=== PATIENT | female | born 1985 | race Two or more races ===

== ENCOUNTER 2018-03-20 05:59 | Inpatient (IN) | payer OTHER ==
[~2018-03-20] VITALS: Ht 162.6 cm; Wt 67.8 kg
--- NOTE | 2018-03-20 08:37 | NUR ---
MS/RN New admission New admission from [facility] with diagnose of cholelithiasis. Patient fully admitted, awaiting orders.
[2018-03-20] MEDS ORDERED: ACET1TAB23 PO (08:53)
[2018-03-20] MEDS ORDERED: CYAN10009 PO (08:53)
[2018-03-20] MEDS ORDERED: TIZA4TAB4 PO (08:53)
[2018-03-20] MEDS ORDERED: ALBU18HF2 IH (08:53)
[2018-03-20] MEDS ORDERED: CALC-7 PO (08:53)
[2018-03-20 09:15] VITALS: BP 112/68
[2018-03-20] MEDS ORDERED: IV NS 0.9% 1,000 ML IV PRN (09:19)
[2018-03-20] MEDS ORDERED: ZOLPIDEM TARTRATE 5 MG TABLET PO PRN (09:30)
[2018-03-20] MEDS ORDERED: HYDROMORPHONE INJ 0.5 MG/0.5 ML SYRINGE IV PRN (09:30)
[2018-03-20] MEDS ORDERED: PANTOPRAZOLE 40 MG VIAL IV SCH (09:30)
[2018-03-20] MEDS ORDERED: ACETAMINOPHEN 325 MG TABLET PO PRN ×2 (09:30→19:55)
[2018-03-20] MEDS ORDERED: ONDANSETRON HCL/PF 4 MG/2 ML VIAL IVP PRN (09:30)
[2018-03-20] MEDS ORDERED: Z GUARD REMEDY 2 OZ OINT TP PRN (09:30)
[2018-03-20 10:23] LABS: BASOPHILS % (AUTO) 0.1 % (0.0-2.0); EOSINOPHILS % (AUTO) 3.3 % (0.0-6.0); HEMATOCRIT 37 % (33-45); HEMOGLOBIN 12.7 g/dL (11.5-14.8); LYMPHOCYTES # (AUTO) 1.6 /CMM (0.8-4.8); LYMPHOCYTES % (AUTO) 33.6 % (20.0-44.0); MEAN CORPUSCULAR HGB CONC 34 g/dl (31.0-36.0); MEAN CORPUSCULAR VOLUME 86 fL (82-100); MONOCYTES # (AUTO) 0.4 /CMM (0.1-1.30); MONOCYTES % (AUTO) 8.5 % (2.0-12.0); NEUTROPHILS # (AUTO) 2.7 /CMM (1.8-8.9); NEUTROPHILS % (AUTO) 54.5 % (43.0-81.0); PLATELET COUNT (AUTO) 202 /CMM (150-450); RED BLOOD CELL COUNT(AUTO) 4.37 MIL/uL (4.0-5.2); WHITE BLOOD COUNT (AUTO) 4.9 K/uL (4.3-11.0)
[2018-03-20 10:34] LABS: ALBUMIN 3.7 g/dL (3.4-5.0); BILIRUBIN,TOTAL 0.5 mg/dL (0.2-1.0); CALCIUM, SERUM 8.5 mg/dL (8.5-10.1); CREATININE 0.8 mg/dL (0.6-1.3); TOTAL PROTEIN, SERUM 6.9 g/dL (6.4-8.2)
[2018-03-20] MEDS ORDERED: MAG HYDROX/AL HYDROX/SIMETH 30 ML UDC PO PRN (11:00)
[2018-03-20 11:20] VITALS: BP 112/68
[2018-03-20] MEDS ORDERED: PIPERACILLIN /TAZOBACTAM 3.375 G in IV D5W 50 ML IV ONE (12:00)
--- NOTE | 2018-03-20 12:30 | NUR ---
MS/RN S/B Dr Reyes Seen by Dr Reyes - as patient had abdominal ultrasound completed at [facility] and unable to view images here, HIDA scan to be ordered. Patient to remain NPO.
--- NOTE | 2018-03-20 13:10 | NUR ---
MS/RN Consent Consent forms signed for HIDA scan, test resulted as negative. Per James from nuclear medicine, isotope ordered, patient will be picked up around 2p.
[2018-03-20] MEDS ORDERED: ROCURONIUM BROMIDE 50 MG/5 ML ONE (15:09)
[2018-03-20] MEDS ORDERED: FENTANYL PF 100MCG/2ML AMPUL ONE ×2 (15:31→18:27)
[2018-03-20] MEDS ORDERED: MIDAZOLAM HCL 2 MG/2ML VIAL ONE (15:32)
[2018-03-20] MEDS ORDERED: BUPIVACAINE 0.5 % PF 150 MG/30 ML VIAL ONE (15:34)
[2018-03-20] MEDS ORDERED: LIDOCAINE 1%-EPI 1:100,000 20 ML VIAL ONE (15:34)
--- NOTE | 2018-03-20 15:48 | NUR ---
MS/school supervisor Notified by surgery that patient would be going straight from nuclear medicine to surgery for laparoscopic cholecystectomy.
[2018-03-20] MEDS ORDERED: LIDOCAINE HCL/PF 1% 30 ML SDV ONE (16:11)
[2018-03-20] MEDS ORDERED: ONDANSETRON HCL/PF 4 MG/2 ML VIAL ONE (18:27)
[2018-03-20 18:37] LABS: APPEARANCE,URINE CLEAR (CLEAR); BILIRUBIN,URINE NEGATIVE (NEGATIVE); BLOOD, URINE NEGATIVE Ery/uL (NEGATIVE); COLOR,URINE YELLOW (YELLOW); KETONES,URINE NEGATIVE (NEGATIVE); LEUKOCYTE ESTERASE ,URINE NEGATIVE (NEGATIVE); NITRITE, URINE NEGATIVE (NEGATIVE); PH,URINE 8.5 (5.0-8.0); PROTEIN,URINE TRACE mg/dl (NEGATIVE); UGLUCOSE NEGATIVE (NEGATIVE); UROBILINOGEN,URINE 0.2 EU/dL (0.2)
--- NOTE | 2018-03-20 18:41 | NUR ---
MS/RN End note Patient remains in operating room at this time.
[2018-03-20 18:51] LABS: BACTERIA,URINE Few /HPF (None Seen); HYALINE CASTS, URINE Rare /LPF (None Seen); MUCUS,URINE Few /LPF (None Seen); RBC,URINE NONE SEEN /HPF (0-2); SQUAMOUS EPITHELIAL CELL,UR Many /HPF (None Seen); WBC,URINE NONE SEEN /HPF (0-3)
[2018-03-20] MEDS ORDERED: METOCLOPRAMIDE HCL 10 MG/2 ML VIAL ONE (18:51)
[2018-03-20 19:00] VITALS: BP 143/89
--- NOTE | 2018-03-20 19:50 | NUR ---
RN OPENING NOTES Pt JUST RETURNED FROM OR, S/P BEE SHRESTHAE WITH DR. FLETCHER. RECEIVED REPORT FROM [employer]CH[employer]. Pt IS RESTING IN BED WITH EYES CLOSED, BUT IS RESPONSIVE AND VERBAL WHEN CALLED BY NAME. NO S/S OF ACUTE DISTRESS OR SOB NOTED. Pt IS A/OX4, ABLE TO MAKE NEEDS KNOWN. IV L HAND #20G. SAFETY MEASURES IN PLACE. BED LOW, LOCKED, HOB ELEVATED, SIDE RAILS UP, CALL LIGHT AND BED SIDE TABLE WITHIN REACH. DAYSHIFT RN HAS FAXED POST-OP ORDERS FROM DR FLETCHER. WILL CONTINUE TO MONITOR Pt's CONDITION AND SAFETY THROUGHOUT THE NIGHT.
[2018-03-20 20:00] VITALS: BP 143/89
[2018-03-20] MEDS ORDERED: DOCUSATE SODIUM 100 MG CAPSULE PO PRN (20:00)
[2018-03-20] MEDS ORDERED: IV LR 1000 ML 1,000 ML IV PRN (20:00)
[2018-03-20] MEDS ORDERED: PIPERACILLIN /TAZOBACTAM 3.375 G in IV D5W 100 ML IV SCH (20:00)
--- NOTE | 2018-03-20 20:10 | NUR ---
RN NOTES RECEIVED CALL FROM PHARMACY ASKING TO CONTACT DR FLETCHER IF PREVIOUS ORDERS FROM BEFORE SURGERY ARE TO BE CONTINUED OR NOT POST-OP. IN POST-OP ORDERS IT WAS NOT SPECIFIED IF PREVIOUS MEDS, SUCH ZOSYN AND PROTONIX, WERE TO BE RESUMED. WILL TRY TO GET A HOLD OF DR FLETCHER TO CLARIFY.
[2018-03-20] MEDS: HYDROMORPHONE INJ 2 MG/ML DISP.SYRIN IV PRN ×2 (20:11→22:23)
--- NOTE | 2018-03-20 20:24 | NUR ---
DR FLETCHER'S OFFICE #: [phone]
--- NOTE | 2018-03-20 20:25 | NUR ---
RN NOTES SPOKE WITH TOREY FROM DR FLETCHER'marilyn AFTER OFFICE HOURS. GAVE ME DR FLETCHER's DIRECT NUMBER: [phone]
--- NOTE | 2018-03-20 20:27 | NUR ---
RN NOTES CONTACTED DR. FLETCHER, INFORMED HIM OF THE SITUATION THAT PER PHARMACY THEY NEED A CLARIFICATION ORDER OF WHETHER OR NOT TO RESUME ALL MEDS. WAITING FOR HIS RESPONSE BACK.
--- NOTE | 2018-03-20 20:57 | NUR ---
RN NOTES PER DR FLETCHER's PHONE ORDER: DISCONTINUE ANTIBIOTICS. CONTINUE ALL OTHER MEDS, INCLUDING PROTONIX. AND TO ADD ON TO THE POST-OP ORDERS.
[2018-03-20] MEDS: PANTOPRAZOLE 40 MG VIAL IV SCH (22:05)
--- NOTE | 2018-03-20 22:06 | NUR ---
ADMINISTERED PROTONIX 40MG LATE DUE TO Pt BEING IN SURGERY AT 1700 WHEN MED WAS SCHEDULED TO BE DUE. PER PHARMACY OK TO GIVE LATE LONG DR FLETCHER SAID OK TO CONTINUE MEDS. PER DR JUSTINE WARD TO CONTINUE PROTONIX.
[2018-03-21] MEDS: HYDROCODONE/APAP 5/325MG 1 EACH TABLET PO PRN ×3 (00:07→21:15)
[2018-03-21] MEDS: HYDROMORPHONE INJ 2 MG/ML DISP.SYRIN IV PRN (05:53)
[2018-03-21 06:49] LABS: BASOPHILS % (AUTO) 0.1 % (0.0-2.0); HEMATOCRIT 36 % (33-45); HEMOGLOBIN 12.2 g/dL (11.5-14.8); LYMPHOCYTES # (AUTO) 1.1 /CMM (0.8-4.8); LYMPHOCYTES % (AUTO) 14.2 % (20.0-44.0); MEAN CORPUSCULAR HGB CONC 34 g/dl (31.0-36.0); MEAN CORPUSCULAR VOLUME 85 fL (82-100); MONOCYTES # (AUTO) 0.5 /CMM (0.1-1.30); MONOCYTES % (AUTO) 6.6 % (2.0-12.0); NEUTROPHILS # (AUTO) 6.1 /CMM (1.8-8.9); NEUTROPHILS % (AUTO) 79.1 % (43.0-81.0); PLATELET COUNT (AUTO) 198 /CMM (150-450); RED BLOOD CELL COUNT(AUTO) 4.22 MIL/uL (4.0-5.2); WHITE BLOOD COUNT (AUTO) 7.7 K/uL (4.3-11.0)
[2018-03-21 06:50] LABS: CALCIUM, SERUM 8.2 mg/dL (8.5-10.1); CREATININE 0.6 mg/dL (0.6-1.3)
--- NOTE | 2018-03-21 06:55 | NUR ---
RN CLOSING NOTES NO SIGNIFICANT CHANGES IN Pt's CONDITION. Pt REMAINS STABLE PER BASELINE. NO S/S OF ACUTE DISTRESS OR SOB NOTED DURING THE NIGHT. ALL NEEDS MET AND ATTENDED TO. SAFETY MEASURES IN PLACE. WILL ENDORSE TO DAYSHIFT RN FOR Pt's MAUDE.
--- NOTE | 2018-03-21 07:36 | NUR ---
MS/RN Patient received Patient received from cook night, sleeping as pain medication just administered by previous nurse. IV fluids infusing at 90ml/hr, no signs of infiltration seen. Call light within reach, will continue to monitor and ensure safety.
[2018-03-21 08:00] VITALS: BP_SYST 114; BP_DIAS 1; BP_DIAS 71
[2018-03-21] MEDS: PANTOPRAZOLE 40 MG VIAL IV SCH ×2 (08:22→16:56)
--- NOTE | 2018-03-21 10:00 | NUR ---
MS/RN S/B Dr Obando Seen by Dr Obando - for possible discharge later today if able to tolerate diet. IV fluids to be discontinued at that time.
--- NOTE | 2018-03-21 12:30 | NUR ---
MS/RN Advance diet Dr Helm called regarding diet, order given to advance as tolerated.
[2018-03-21 16:00] VITALS: BP_SYST 120; BP_SYST 143; BP_DIAS 65; BP_DIAS 76
--- NOTE | 2018-03-21 16:39 | NUR ---
Patient lives at home with family. She is ambulatory and independent with adl's. Has good family support. Spouse will provide ride when discharge. Addendum: 03/21/18 at 1642 by AMADO LYLES RN Amended: Links added.
--- NOTE | 2018-03-21 18:25 | NUR ---
MS/RN End note Tolerating diet, awaiting review from Dr Reyes for possible discharge today.
[2018-03-21 20:00] VITALS: BP 126/73
[2018-03-22] MEDS: HYDROCODONE/APAP 5/325MG 1 EACH TABLET PO PRN ×3 (04:57→13:02)
--- NOTE | 2018-03-22 06:21 | NUR ---
CLOSING NOTES: MEDICATED X2 PO ANALGESIC, AND EFFECTIVE FOR INCISIONAL SITE PAIN. 3 SITES ON THE ABD CDI SCABBED. SEEN BY MD FLETCHER LAST NIGHT AT 1999. STATED SHE COULD GO HOME AFTER BREAKFAST. VISITED BY HER DTR AND . BS AUDIBLE.
--- NOTE | 2018-03-22 07:45 | NUR ---
RN NOTES PATIENT A/OX4, DENIES PAIN AT THIS TIME, ENCOURAGED PATIENT TO AMBULATE, NO BM YET SINCE ADMISSION PER PATIENT, BUT DOES PASS GAS, BOWEL SOUNDS ACTIVE. NEEDS ATTENDED, CALL LIGHT WITHIN REACH, WILL CONTINUE TO MONITOR.
[2018-03-22 08:00] VITALS: BP 112/77
[2018-03-22] MEDS: PANTOPRAZOLE 40 MG VIAL IV SCH (08:54)
--- NOTE | 2018-03-22 12:51 | NUR ---
RN NOTES PATIENT A/OX4, RECEIVED DISCHARGED INSTRUCTIONS AND VERBALIZED UNDERSTANDING, PAPERWORKS SIGNED, BELONGINGS COMPLETE, IV REMOVED AND APPLIED TAPE. SKIN ASSESSMENT COMPLETED, 3 SURGICAL INCISION CLEAN AND DRY, NO S/SX OF INFECTION. NO PHOTOS TAKEN, THE REST OF THE SKIN IS INTACT, PATIENT IS AMBULATORY. REPORTED SHE WAS ABLE TO PASS GAS. STILL NO BM AT THIS TIME, DENIES ABDOMINAL PAIN, TOLERATING CURRENT DIET. 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
--- NOTE | 2018-03-22 13:10 | NUR ---
WIRE WEAVER HELPER PAIN MEDICATION ADMINISTERED PRIOR TO LEAVING. INSTRUCTED PATIENT NOT TO DRIVE, PATIENT VERBALIZED UNDERSTANDING. PATIENT LEFT WITH , IN STABLE CONDITION.
== END 2018-03-22 13:10 | disposition home or self-care (01) | DRG 263 ==
LOC: MEDSG2 08:34
PROVIDERS: ADMIT Nurse Practitioner Acute Care; ATTEND Internal Medicine
PROC: 0FT44ZZ Resection of Gallbladder, Percutaneous Endoscopic Approach (ICD-10-PCS; principal; 2018-03-20)
DX: K80.00 Calculus of gallbladder with acute cholecystitis without obstruction (principal); G89.29 Other chronic pain; J45.909 Unspecified asthma, uncomplicated
CPT/HCPCS: 36415; 78226; 80048-TC; 80053-TC; 81000-TC; 83690-TC; 84702-TC; 85025-TC; 85730-TC; 86850-TC; 87081-TC; 88304-TC; A9537; C9113; G0378; J0690; J1100; J1170; J2250; J2405; J2543; J2704; J2710; J2765; J3010; J3490; J7030; J7060; J7120